=== PATIENT | female | born 1990 | race Caucasian/White ===

== ENCOUNTER 2023-03-31 20:15 | Emergency (ER) | payer OTHER ==
[~2023-03-31] VITALS: Ht 170.2 cm; Wt 70.3 kg
--- NOTE | 2023-03-31 20:45 | NUR ---
Pt is noted alert, responsive as she came in C/O Left lower leg pain x1week and Pt thinks possible Blood Clot. Pt care continue as awaits MD orders.
--- NOTE | 2023-03-31 21:00 | NUR ---
X-RAY done. Pt care continue as awaits results.
[2023-03-31 21:10] LABS: HEMATOCRIT 37.6 % (31.2-41.9); MEAN CORPUSCULAR HEMOGLOBIN 29.1 uug (24.7-32.8); MEAN CORPUSCULAR VOLUME 87.8 fL (75.5-95.3); PLATELET COUNT (AUTO) 213 K/uL (179-408)
[2023-03-31 21:17] LABS: CREATININE 0.8 mg/dL (0.6-1.3)
--- NOTE | 2023-03-31 22:58 | NUR ---
Pt care continue as Orders noted for Duplex Venous for low Ext Ultrosound test ordered with Lab D-Dimer off 1.46 also noted.
--- NOTE | 2023-03-31 23:33 | NUR ---
Pt care continue as awaits Duplex Venous Bilateral Low Ext. US results.
== END 2023-04-01 | disposition left against medical advice (07) ==
LOC: ER 20:15
DX: M79.605 Pain in left leg (principal); E28.2 Polycystic ovarian syndrome; E83.51 Hypocalcemia
CPT/HCPCS: 36415; 73590; 83735; 85025; A4663